=== PATIENT | female | born 2000 | race Caucasian/White ===

== ENCOUNTER 2024-09-25 15:57 | Emergency (ER) | payer OTHER ==
[2024-09-25] MEDS: Diphtheria,Pertussis(Acell),Tetanus Vaccine 0.5 ML Syringe IM ONE (16:55)
== END 2024-09-25 17:30 | disposition home or self-care (01) ==
LOC: MW.ED 15:57
DX: S61.217A Laceration without foreign body of left little finger without damage to nail, initial encounter (principal); Z75.3 Unavailability and inaccessibility of health-care facilities; Z23 Encounter for immunization; W26.8XXA Contact with other sharp object(s), not elsewhere classified, initial encounter
CPT/HCPCS: 12001; 90471; 90715; 99282-25; 99283